=== PATIENT | female | born 1980 ===

== ENCOUNTER 2021-11-25 09:30 | Emergency (ER) | payer SELFPAY ==
[2021-11-25 09:39] VITALS: BP 126/82
[2021-11-25 12:00] LABS: Alanine Aminotransferase 27 units/L (7-56); Albumin 4.4 g/dL (3.9-5); Blood Urea Nitrogen 9 mg/dL (7-17); Hemolysis Index 2
[2021-11-25 12:31] LABS: BUN/Creatinine Ratio 15
[2021-11-25 12:55] LABS: Basophils % (Auto) 0.4 % (0.0-1.8); Eosinophils # (Auto) 0.1 K/mm3 (0.0-0.4); Eosinophils % (Auto) 1.8 % (0.0-4.3); Hematocrit 28.9 % (30.3-42.9); Hemoglobin 8.8 gm/dl (10.1-14.3); Lymphocytes # (Auto) 2.1 K/mm3 (1.2-5.4); Lymphocytes % (Auto) 34.4 % (13.4-35.0); Mean Corpuscular HGB Conc 30 % (30-34); Monocytes # (Auto) 0.3 K/mm3 (0.0-0.8); Monocytes % (Auto) 4.3 % (0.0-7.3); Platelet Count 416 K/mm3 (140-440); Red Blood Count 4.66 M/mm3 (3.65-5.03); Red Cell Distribution Width 18.6 % (13.2-15.2)
[2021-11-25 13:20] LABS: Mean Corpuscular Volume 62 fl (79-97)
--- NOTE | 2021-11-25 13:25 | XRay Report ---
XR chest routine 2V INDICATION / CLINICAL INFORMATION: Chest Pain COMPARISON: None available. FINDINGS: SUPPORT DEVICES: None. HEART / MEDIASTINUM: No significant abnormality. LUNGS / PLEURA: Lungs are clear. Costophrenic sulci are sharp. No pneumothorax. ADDITIONAL FINDINGS: No significant additional findings. IMPRESSION: 1. No acute findings. Signer Name: Servando Buenrostro MD Signed: 11/25/2021 1:20 PM Workstation Name: [employer]
--- NOTE | 2021-11-25 19:00 | Electrocardiograph Report ---
[facility] Test Date: 2021-11-25 Test Time: 09:47:15 Pat Name: MARIA GUADALUPE LAST Department: Room: Gender: F Specialty Therapist: SAILAJA : 1980 Requested By: ED DOC Order Number: [id number] Reading MD: Yogi May Measurements Intervals [place] Rate: 90 P: 42 NH: 132 QRS: 44 QRSD: 98 T: 27 QT: 384 QTc: 470 Interpretive Statements Sinus rhythm Probable left ventricular hypertrophy No previous ECG available for comparison Electronically Signed On 11-25-2021 19:00:28 EDT by Yogi May
== END 2021-11-25 16:57 | disposition left against medical advice (07) ==
LOC: ED 09:30
DX: R07.9 Chest pain, unspecified (principal); Z53.21 Procedure and treatment not carried out due to patient leaving prior to being seen by health care provider
CPT/HCPCS: 36415; 71046; 80053; 83690; 84484; 84703; 85025; 93005